=== PATIENT | female | born 1975 | race Caucasian/White ===

== ENCOUNTER → 2018-05-20 | Outpatient (CLI) | payer OTHER ==
--- NOTE | 2018-05-20 17:29 | Diagnostic Imaging Report ---
History: Seizure and headache Comparison studies: None Technique: Axial images were obtained from the skull base to the vertex. Coronal and sagittal reconstructions obtained from the axial data. Findings: Scalp/skull: No abnormalities. No fractures, blastic or lytic lesions. Extra-axial spaces: No masses. No fluid collections. Brain sulci: Appropriate for age. Ventricles: Normal in size and configuration. No hydrocephalus. Parenchyma: No abnormal densities. No masses, hemorrhage, acute or chronic cortical vascular insults. Sellar/suprasellar region: No abnormalities Craniocervical junction: Mildly low-lying cerebellar tonsils without Chiari one malformation. IMPRESSION: Normal head CT. Signed by: Dr. Cresencio Petty M.D. on 05/20/2018 5:25 PM
== END ==
LOC: CT 10:06
PROVIDERS: ATTEND Psychiatry & Neurology Clinical Neurophysiology
DX: I63.9 Cerebral infarction, unspecified (principal); G40.309 Generalized idiopathic epilepsy and epileptic syndromes, not intractable, without status epilepticus
CPT/HCPCS: 70450

== ENCOUNTER → 2021-11-19 | Outpatient (CLI) | payer OTHER | LOC: CT 13:23 | PROVIDERS: ATTEND Student in an Organized Health Care Education/Training Program | DX: I63.9 Cerebral infarction, unspecified (principal); R41.3 Other amnesia | CPT/HCPCS: 70450 ==